=== PATIENT | female | born 1975 | race Two or more races ===

== ENCOUNTER 2020-03-03 12:51 | Outpatient (CLI) | payer OTHER | END 2020-03-03 13:03 | disposition home or self-care (01) | LOC: RAD 12:51 | PROVIDERS: ATTEND Orthopaedic Surgery | DX: M25.571 Pain in right ankle and joints of right foot (principal); M25.572 Pain in left ankle and joints of left foot ==

== ENCOUNTER 2020-03-09 10:25 | Outpatient (CLI) | payer OTHER | END 2020-03-09 10:36 | disposition home or self-care (01) | LOC: RAD 10:25 | PROVIDERS: ATTEND Orthopaedic Surgery | DX: S82.64XA Nondisplaced fracture of lateral malleolus of right fibula, initial encounter for closed fracture (principal) ==

== ENCOUNTER 2020-03-12 09:50 | Outpatient (CLI) | payer OTHER | END 2020-03-12 09:59 | disposition home or self-care (01) | LOC: RAD 09:50 | PROVIDERS: ATTEND Orthopaedic Surgery | DX: S82.64XA Nondisplaced fracture of lateral malleolus of right fibula, initial encounter for closed fracture (principal); S93.492A Sprain of other ligament of left ankle, initial encounter ==